=== PATIENT | female | born 1970 | race Caucasian/White ===

== ENCOUNTER → 2024-05-20 14:17 | Outpatient (REF) | payer OTHER, SELFPAY ==
[2024-05-20 17:42] LABS: Hepatitis B Surface Antibody Positive
[2024-05-20 17:49] LABS: Rubella Positive
[2024-05-22 14:03] LABS: Mumps Virus IgG Positive; Rubeola (Measles) IgG Positive; Varicella Zoster IgG (VZV) Positive
== END ==
LOC: OHS 14:17
PROVIDERS: ATTENDING PHYSICIAN Nurse Practitioner Family
DX: Z23 Encounter for immunization (principal)
CPT/HCPCS: 36415; 86706; 86735; 86762; 86765; 86787

== ENCOUNTER → 2024-09-29 14:19 | Outpatient (REF) | payer OTHER, SELFPAY | LOC: DHSLP 14:19 | PROVIDERS: ATTENDING PHYSICIAN Internal Medicine; FAMILY PHYSICIAN Family Medicine | DX: G47.52 REM sleep behavior disorder (principal); R06.83 Snoring | CPT/HCPCS: 95810 ==